=== PATIENT | female | born 1995 | race Two or more races ===

== ENCOUNTER 2022-01-03 10:28 | Emergency (ER) | payer MEDICAID, OTHER ==
[~2022-01-03] VITALS: Ht 152.4 cm; Wt 63.5 kg
[2022-01-03 11:07] VITALS: BP 147/83
[2022-01-03 11:33] LABS: Basophils # (auto) 0.1 10 ^3/uL (0-0.2); Basophils % (auto) 0.7 % (0.0-2.0); Eosinophils # (auto) 0.2 10 ^3/uL (0-0.8); Eosinophils % (auto) 1.3 % (0.0-7.0); Hematocrit 36.2 % (36.0-46.0); Hemoglobin 12.4 g/dL (12.2-16.2); Lymphocytes # (auto) 1.7 10 ^3/uL (0.4-5.4); Lymphocytes % (auto) 11.4 % (10.0-50.0); Mean Corpuscular Hemoglobin 31.2 pg (28.0-32.0); Mean Corpuscular Hgb Conc. 34.2 g/dL (32.0-36.0); Mean Corpuscular Volume 91.2 fL (80.0-100.0); Monocytes # (auto) 0.6 10 ^3/uL (0-1.3); Neutrophils # (auto) 12.3 10 ^3/uL (1.6-8.6); Neutrophils % (auto) 82.6 % (37.0-80.0); Red Blood Cells 3.97 10^6/uL (4.0-5.20); Red Cell Distribution Width 13.4 % (11.8-14.3); White Blood Cell 14.8 10^3/uL (4.4-10.8)
[2022-01-03 12:34] LABS: Urine Blood 3+ /uL (Negative); Urine WBC 490 /hpf (0 - 5); Urine WBC Clumps PRESENT /hpf (None Seen)
[2022-01-03 12:37] LABS: Urine Bacteria FEW /hpf (None Seen)
[2022-01-03 13:05] LABS: Urine Specific Gravity 1.025 (1.001-1.035)
== END 2022-01-03 12:30 | disposition home or self-care (01) ==
LOC: ER 10:28
DX: O20.0 Threatened abortion (principal); Z3A.13 13 weeks gestation of pregnancy
CPT/HCPCS: 36415; 76801; 81001; 84702; 85025

== ENCOUNTER 2025-08-16 07:48 | Observation (INO) | payer MEDICAID ==
--- NOTE | 2025-08-23 14:36 | DVH ---
BIOPHYSICAL PROFILE HISTORY: GDMA2 TECHNIQUE: Multiple transabdominal real-time grayscale sonographic images through the gravid uterus of the fetus with duplex Doppler color flow and M-mode spectral analysis FINDINGS: BIOPHYSICAL PROFILE: breathing score: 2 movement score: 2 tone score: 2 Quantitative KANDY score: 2 (KANDY: 15.7 Cm.) Total score: 8 The cervix not well visualized. Single live fetus in cephalic presentation. heart rate 147 beats per minute. Anterior placenta without previa or abruption IMPRESSION: Biophysical profile score: 8
--- NOTE | 2025-08-23 15:30 | DVHDS2 ---
Physician Discharge Progress N Final Diagnosis: testing for GDM, A1 Operations or Procedures: Operations or Procedures 29yo IUP@37.3wks VSS NST reactive (FHR baseline 145, moderate variability, +accels, -decels. I personally reviewed EFM tracing.) TOCO: 1 UC in 10 minutes FKC/PreE/labor precautions reviewed Other Interventions Other Interventions [address] [address] Ph: [phone] DIAGNOSTIC IMAGING Diagnostic Imaging Report : [id number] Signed PATIENT: DARIO BENITEZACCT: [id number] UNIT: [id number] : 1995 LOC: [facility] ROOM / BED: TRIAGE3 / A AGE / SEX: 29 / F ADM STATUS: ADM IN SERVICE 1352 ORDERING PHYSICIAN: DENYS MARTINEZ DO PROCEDURE(s): BPP - BIOPHYSICAL PROFILE REASON: GDMA2 ORDER NUMBER(s): [id number], ACCESSION NUMBER(s): [id number] BIOPHYSICAL PROFILE HISTORY: GDMA2 TECHNIQUE: Multiple transabdominal real-time grayscale sonographic images through the gravid uterus of the fetus with duplex Doppler color flow and M-mode spectral analysis FINDINGS: BIOPHYSICAL PROFILE: breathing score: 2 movement score: 2 tone score: 2 Quantitative KANDY score: 2 (KANDY: 15.7 Cm.) Total score: 8 The cervix not well visualized. Single live fetus in cephalic presentation. heart rate 147 beats per minute. Anterior placenta without previa or abruption IMPRESSION: Biophysical profile score: 8 ATED BY: SAIGE MIKE MD DICTATED DATE/TIME: 08/23/251433 SIGNED BY: SAIGE MIKE MD SIGNED DATE/TIME: 08/23/25 143 CC: Condition on Discharge: Stable Disposition: Home Discharge Instructions: Diet: Consistent carbohydrate Activity: No Restrictions, As Tolerated Medications: see med list Follow Up Care: Specialist: f/u in 1wk Discharge Statement: "Patient was advised to return to the ER or call 911 if any headaches, dizziness, shortness of breath, chest pain, abdominal pain, bleeding, fevers, or worsening of medical condition. Patient was counseled about treatment plan, medications, possible side effects, patientverbalized understanding. All questions were answered to the best of my ability. This discharge took greater then 30 minutes in planning, reviewing documentation, counseling the patient, and discussing with other team members." Visit Coding OBGYN Date of Service: Aug 23, 2025 Billing Provider: SAMI WHITE CNM BRINE MAKER Common Visit Codes: [id number] OBS CARE (HIGH) BRINE MAKER Procedure Codes: 49884-51- NON-STRESS TEST SAMI WHITE CNM Aug 23, 2025 15:30
== END 2025-08-23 15:36 | disposition home or self-care (01) ==
LOC: UNDOADMOB 08-23 13:50 → LDRP 08-23 13:50
PROVIDERS: ADMIT Obstetrics & Gynecology; ATTEND Obstetrics & Gynecology
DX: O24.419 Gestational diabetes mellitus in pregnancy, unspecified control (principal); Z3A.37 37 weeks gestation of pregnancy; Z79.899 Other long term (current) drug therapy; Z98.890 Other specified postprocedural states
CPT/HCPCS: 76819; 81002; 82948; 82962; 94760; G0378; 59025

== ENCOUNTER 2025-08-30 05:07 | Observation (INO) | payer MEDICAID ==
--- NOTE | 2025-08-30 13:54 | DVH ---
BIOPHYSICAL PROFILE HISTORY: GDMA1 TECHNIQUE: Multiple transabdominal real-time grayscale sonographic images through the gravid uterus of the fetus with duplex Doppler color flow and M-mode spectral analysis FINDINGS: BIOPHYSICAL PROFILE: breathing score: 2 movement score: 2 tone score: 2 Quantitative KANDY score: 2 (KANDY: 17.8 Cm.) Total score: 8 The cervix was not seen Single live fetus in cephalic presentation. heart rate 165 beats per minute. Grade II anterior placenta without previa or abruption IMPRESSION: Biophysical profile score: 8
--- NOTE | 2025-09-01 15:06 | DVHDS2 ---
Physician Discharge Progress N Final Diagnosis: gdm 38 wks Operations or Procedures: Operations or Procedures nst reactive reviwed,sono Condition on Discharge: Good Disposition: Home Discharge Instructions: Diet: Consistent carbohydrate Activity: No Restrictions, As Tolerated Follow Up/Referral: [facility] Thursday[facility] 06 at 12:00pm for NST/BPP Medications: na Follow Up Care: Specialist: 3d Discharge Statement: "Patient was advised to return to the ER or call 911 if any headaches, dizziness, shortness of breath, chest pain, abdominal pain, bleeding, fevers, or worsening of medical condition. Patient was counseled about treatment plan, medications, possible side effects, patientverbalized understanding. All questions were answered to the best of my ability. This discharge took greater then 30 minutes in planning, reviewing document ation, counseling the patient, and discussing with other team members." Visit Coding OBGYN Date of Service: Sep 01, 2025 Billing Provider: DENYS MARTINEZ DO [employer] Common Visit Codes: [id number] OBS CARE (HIGH) [employer] Procedure Codes: 48096-17- NON-STRESS TEST DENYS MARTINEZ DO Sep 01, 2025 15:06
== END 2025-08-30 14:34 | disposition home or self-care (01) ==
LOC: UNDOADMOB 13:00 → LDRP 13:00
PROVIDERS: ADMIT Obstetrics & Gynecology; ATTEND Obstetrics & Gynecology
DX: O62.9 Abnormality of forces of labor, unspecified (principal); Z3A.38 38 weeks gestation of pregnancy; Z79.899 Other long term (current) drug therapy; Z98.890 Other specified postprocedural states
CPT/HCPCS: 59025; 76819; 81002; 82948; 82962; 94760; G0378

== ENCOUNTER 2025-09-06 07:51 | Observation (INO) | payer MEDICAID ==
--- NOTE | 2025-09-06 14:13 | DVH ---
BIOPHYSICAL PROFILE HISTORY: GMDA1 TECHNIQUE: Multiple transabdominal real-time grayscale sonographic images through the gravid uterus of the fetus with duplex Doppler color flow and M-mode spectral analysis FINDINGS: BIOPHYSICAL PROFILE: breathing score: 2 movement score: 2 tone score: 2 Quantitative KANDY score: 2 (KANDY: 17.3 Cm.) Total score: 8 The cervix not well visualized. Single live fetus in cephalic presentation. heart rate 158 beats per minute. Anterior placenta without previa or abruption IMPRESSION: Biophysical profile score: 8
[2025-09-06] MEDS ORDERED: PREN-96 PO (14:28)
== END 2025-09-06 14:40 | disposition home or self-care (01) ==
LOC: LDRP 13:15
PROVIDERS: ADMIT Obstetrics & Gynecology; ATTEND Obstetrics & Gynecology
DX: O24.419 Gestational diabetes mellitus in pregnancy, unspecified control (principal); Z3A.39 39 weeks gestation of pregnancy; Z98.890 Other specified postprocedural states
CPT/HCPCS: 59025; 76819; 81002; 82948; 82962; 94760; G0378

== ENCOUNTER 2025-09-07 01:47 | Inpatient (IN) | payer MEDICAID ==
[~2025-09-07] VITALS: Ht 154.9 cm; Wt 76.2 kg
[~2025-09-07 01:47] MED LIST: PREN-96 PO
[2025-09-07] MEDS ORDERED: NALBUPHINE HCL 10 MG/1ml INJECTION IV PRN (02:30)
[2025-09-07] MEDS: LACTATED RINGER'S 1,000 ML IV SCH (02:30)
[2025-09-07 02:55] LABS: Hematocrit 36.8 % (36.0-46.0); Hemoglobin 12.6 g/dL (12.2-16.2); Mean Corpuscular Hemoglobin 31.7 pg (28.0-32.0); Mean Corpuscular Volume 93.0 fL (80.0-100.0); Nucleated Red Blood Cells % 0.0 %
[2025-09-07 03:00] LABS: Urine Protein, UAD Negative (Negative)
[2025-09-07] MEDS: LACT. RINGERS/OXYTOCIN 20UNITS 500 ML IV ONE ×3 (03:00→08:15)
[2025-09-07 03:10] LABS: INR 0.96 (0.9-1.15); Partial Thromboplastin Time 30.2 SEC (24.5-34.5); Prothrombin Time 10.2 sec (9.3-11.8)
[2025-09-07 03:11] LABS: Alanine Aminotransferase 10 U/L (7-40); Albumin 3.6 g/dL (3.2-4.8); Alkaline Phosphatase 122 U/L (46-116); Anion Gap 12 (5-15); BUN/Creatinine Ratio 15.5 (10.0-20.0); Bilirubin, Total 0.4 mg/dL (0.2-1.0); Blood Urea Nitrogen 9 mg/dL (9-23); Calcium 8.9 mg/dL (8.7-10.4); Carbon Dioxide 18 mmol/L (20-31); Chloride 108 mmol/L (98-107); Glucose 89 mg/dL (74-106); Potassium 3.7 mmol/L (3.5-5.1); Sodium 138 mmol/L (136-145); Total Protein 6.0 g/dL (5.7-8.2)
[2025-09-07 03:15] LABS: Cannabinoid Screen, Urine Neg (NEGATIVE)
--- NOTE | 2025-09-07 03:39 | DVHHP2 ---
OB CC & HPI Date Date of Admission: Sep 07, 2025 Patient Identification: : 2 Para: 1 EDC: Sep 10, 2025 EGA: 39w 4d Chief Complaints: Reason for admission: active labor Admission Nurse Assessment Rev: Yes Past Medical History Cardiac: No pertinent Hx Pulmonary: No pertinent Hx Central Nervous System: No pertinent Hx GI: No pertinent Hx Hemotology/Oncology: No pertinent Hx Hepatobiliary: No pertinent Hx Psychiatric: No pertinent Hx Musculoskeletal: No pertinent Hx Rheumotologic: No pertinent Hx Infectious Disease: No peritnent Hx ENT: No pertinent Hx Renal/: No pertinent Hx Endocrine: No pertinent Hx Dermatology: No pertinent Hx Past Surgical History: No pertinent Hx OB History OB History Care: Good Care Ultrasounds: Normal mid trimester US Obstetrical Complications: Gestational Diabetes Medical Complications: None Allergies: Coded Allergies: NO KNOWN ALLERGIES (Unverified , 01/03/22) Home Meds Reported Medications Vit W/ Ferrous Fumara ( One Daily) Daily Tab, 1 TAB PO DAILY, #90 TAB 3 Refills 09/06/25 Current Medications Current Medications Medications (Trade) Dose Ordered Sig/Guerline Route PRN Reason Start Time Stop Time Status Last Admin Lactated Ringer's 1,000 ml @ 125 mls/hr Q8H IV 09/07/25 02:30 Nalbuphine HCl (Nubain) 10 mg Q4HP PRN IV MODERATE PAIN (4-6 PAIN SCALE) 09/07/25 02:30 Witch Radha (Tucks) 1 pad PRN PRN TOP PERINEAL AREA DISCOMFORT 09/07/25 02:30 Sodium Lauryl Sulfate (Phisoderm) 240 ml PRN PRN TOP PERINEAL AREA DISCOMFORT 09/07/25 02:30 Benzocaine (Dermoplast) 1 applic PRN PRN TOP PERINEAL AREA DISCOMFORT 09/07/25 02:30 Lidocaine HCl (Xylocaine) 40 ml ONCE PRN IJ PERINEAL AREA DISCOMFORT 09/07/25 02:30 Diagnostic Test (Pha) (Accu-Chek Comfort Curve T) 1 strip Q4HR 09/07/25 06:30 Family & Social History Family/Social History Past Family/Social History: Diabetes @: MGF & PGF, HTN - father Blood Type: O+ Rubella: immune RPR/VDRL: Negative GBS Status: Negative HBsAG: Negative Review of Systems Constitutional: No symptom reported Ears, Nose, & Throat: No symptom reported Eyes: No symptom reported Pulmonary/Respiratory: No symptom reported Cardiovascular: No symptom reported Gastrointestinal: No symptom reported Genitourinary: No symptom reported Musculoskeletal: No symptom reported Skin: No symptom reported Psychiatric: No symptom reported Endocrine: No symptom reported Hemotologic/Lymphatic: No symptom reported OB Admission Exam Physical Exam HEENT: TMs Normal, Fontanelles Normal, Nasal Mucosa Normal, Eyes non-injected, Oropharynx Normal, PERRLA, Moist Membranes, EOMI Heart: Rhythm Normal Lungs: Clear Abdomen: Non tender Extremities: Normal Reflexes: Normal Cervical Dilatation: 5cm Effacement: 75% Station: -2 Membranes: Intact Heart Rate: 150's Accelerations: Accelerations Present Decelerations: No Decelerations Intermediate Variability: Minimal (3-5) Contractions on Admission: None Date/Time Contractions Began: 09/06/25 Frequency of Contractions: 5min Duration: 30secs Intensity: Mild OB Plan Plan Admitting Diagnosis: IUP @ 39w 4d Onset of Labor Plan: Expectant Management Visit Coding OBGYN Date of Service: Sep 07, 2025 Billing Provider: PERRI GAR CNM TRANSCRIPTION MANAGER Common Visit Codes: [id number] INP/OBS CARE (HIGH) TRANSCRIPTION MANAGER Procedure Codes: 16425-35- NON-STRESS TEST PERRI GAR CNM Sep 07, 2025 03:39
[2025-09-07] MEDS: WITCH HAZEL-GLYCERIN PAD TOP PRN (03:48)
[2025-09-07] MEDS: DERMOPLAST 60ML BOTTLE TOP PRN (03:48)
[2025-09-07] MEDS: PHISODERM TOP SOLN 240ML BTL TOP PRN (03:48)
[2025-09-07 03:50] LABS: Amphetamine Screen, Urine Neg (NEGATIVE); Barbiturate Scree,Urine Neg (NEGATIVE); Benzodiazephine Screen, Urine Neg (NEGATIVE); Opiate Scree,Urine Neg (NEGATIVE); Phencyclidine Screen, Urine Neg (NEGATIVE)
[2025-09-07 03:51] LABS: Cocaine Screen, Urine Neg (NEGATIVE)
[2025-09-07] MEDS: D5W/LACTATED RINGERS 1,000 ML IV SCH (04:28)
[2025-09-07] MEDS ORDERED: ceFAZolin 1GM/50ML 50 ML IV ONE (06:15)
--- NOTE | 2025-09-07 06:27 | DVHPN2 ---
CNM Labor Progress Note Date and Time Seen Date Seen: Sep 07, 2025 Time Seen: 05:50 Subjective Patient reports: No new complaints Monitoring Method Monitoring Method: External Heart Rate Heart Rate Baseline: 165 Heart Rate Variability: Moderate Presence of FHR Accelerations: Yes Presence of FHR Decelerations: No Comment on Trends or Patterns: Rising FHR baseline Are all 5 Components of the FH: Yes Contractions Contractions Frequency: Other (2-4) Duration of Contraction: 90 Contractions Intensity: Moderate Contractions Resting Tone: Relaxed Membranes Membranes: Intact Vaginal Exam Vag Exam Deferred: No Vaginal Exam Dilation: 6 Vaginal Exam Effacement: 80 Vaginal Exam Station: -1 Vaginal Exam Show: Small Medications Medications - Pitocin: No Medication - Epidural: No Lab Results Lab Results Current Medications Medications (Trade) Dose Ordered Sig/Guerline Start Time Stop Time Status Last Admin Dose Admin Lactated Ringer's 1,000 ml @ 125 mls/hr Q8H 09/07/25 02:30 09/07/25 02:30 125 MLS/HR Nalbuphine HCl (Nubain) 10 mg Q4HP PRN 09/07/25 02:30 Witch Radha (Tucks) 1 pad PRN PRN 09/07/25 02:30 09/07/25 03:48 1 PAD Sodium Lauryl Sulfate (Phisoderm) 240 ml PRN PRN 09/07/25 02:30 09/07/25 03:48 240 ML Benzocaine (Dermoplast) 1 applic PRN PRN 09/07/25 02:30 09/07/25 03:48 1 APPLIC Lidocaine HCl (Xylocaine) 40 ml ONCE PRN 09/07/25 02:30 09/07/25 07:34 40 ML Diagnostic Test (Pha) (Accu-Chek Comfort Curve T) 1 strip Q4HR 09/07/25 06:30 Oxytocin 500 ml @ 999 mls/hr Q31M ONCE 09/07/25 02:30 09/07/25 03:00 DC 09/07/25 07:16 999 MLS/HR Oxytocin 500 ml @ 125 mls/hr Q4H ONCE 09/07/25 03:00 09/07/25 06:59 DC Dextrose/Lactated Ringer's 1,000 ml @ 125 mls/hr Q8H 09/07/25 04:30 09/07/25 04:28 125 MLS/HR Cefazolin Sodium 50 ml @ 100 mls/hr ONCE ONCE 09/07/25 06:15 09/07/25 06:07 DC Cefazolin Sodium/ Dextrose 50 ml @ 50 mls/hr ONCE ONCE 09/07/25 06:15 09/07/25 07:14 DC 09/07/25 06:30 50 MLS/HR Ibuprofen (Motrin Tablet) 600 mg Q6HP PRN 09/07/25 07:45 Acetaminophen (Tylenol Tablet) 650 mg Q4HP PRN 09/07/25 07:45 Oxytocin 500 ml @ 125 mls/hr Q4H ONCE 09/07/25 08:15 09/07/25 12:14 Laboratory Tests Test 09/07/25 02:39 09/07/25 01:55 Range/Units White Blood Count 13.1 H 4.4-10.8 10^3/uL Red Blood Count 3.96 L 4.0-5.20 10^6/uL Hemoglobin 12.6 12.2-16.2 g/dL Hematocrit 36.8 36.0-46.0 % Mean Corpuscular Volume 93.0 80.0-100.0 fL Mean Corpuscular Hemoglobin 31.7 28.0-32.0 pg Mean Corpuscular Hemoglobin Concent 34.1 32.0-36.0 g/dL Red Cell Distribution Width 12.8 11.8-14.3 % Platelet Count 182 140-450 10^3/uL Mean Platelet Volume 9.4 6.9-10.8 fL Neutrophils (%) (Auto) 75.3 37.0-80.0 % Lymphocytes (%) (Auto) 16.4 10.0-50.0 % Monocytes (%) (Auto) 5.7 0.0-12.0 % Eosinophils (%) (Auto) 2.1 0.0-7.0 % Basophils (%) (Auto) 0.5 0.0-2.0 % Neutrophils # (Auto) 9.9 H 1.6-8.6 10 ^3/uL Lymphocytes # (Auto) 2.2 0.4-5.4 10 ^3/uL Monocytes # (Auto) 0.8 0-1.3 10 ^3/uL Eosinophils # (Auto) 0.3 0-0.8 10 ^3/uL Basophils # (Auto) 0.1 0-0.2 10 ^3/uL Nucleated Red Blood Cells 0.0 % Prothrombin Time 10.2 9.3-11.8 sec Prothrombin Time INR 0.96 0.9-1.15 Activated Partial Thromboplast Time 30.2 24.5-34.5 SEC Sodium Level 138 136-145 mmol/L Potassium Level 3.7 3.5-5.1 mmol/L Chloride Level 108 H 98-107 mmol/L Carbon Dioxide Level 18 L 20-31 mmol/L Anion Gap 12 5-15 Blood Urea Nitrogen 9 9-23 mg/dL Creatinine 0.58 0.550-1.02 mg/dL Glomerular Filtration Rate Calc 124 >90 mL/min BUN/Creatinine Ratio 15.5 10.0-20.0 Serum Glucose 89 74-106 mg/dL Calcium Level 8.9 8.7-10.4 mg/dL Total Bilirubin 0.4 0.2-1.0 mg/dL Aspartate Amino Transferase (AST) 18 13-40 U/L Alanine Aminotransferase (ALT) 10 7-40 U/L Alkaline Phosphatase 122 H 46-116 U/L Total Protein 6.0 5.7-8.2 g/dL Albumin 3.6 3.2-4.8 g/dL Treponema pallidum Antibody Non-reactive Negative Hepatitis C Antibody Negative Negative Urine Color Light-yellow Yellow Urine Clarity Clear Clear Urine pH 6.0 5.0-9.0 Urine Specific [place] 1.019 1.001-1.035 Urine Protein Negative Negative Urine Ketones 1+ H Negative Urine Blood Negative Negative /uL Urine Nitrite Negative Negative Urine Bilirubin Negative Negative Urine Urobilinogen Normal Negative mg/dL Urine Leukocyte Esterase Negative Negative /uL Urine RBC None seen 0 - 4 /hpf Urine Microscopic WBC 2 0-5 /HPF Urine Squamous Epithelial Cells Few <5 /hpf Urine Bacteria None seen None Seen /hpf Urine Glucose Normal Normal mg/dL Urine Opiates Screen Neg NEGATIVE Urine Fentanyl Screen Neg NEGATIVE Urine Barbiturates Screen Neg NEGATIVE Urine Phencyclidine Screen Neg NEGATIVE Urine Amphetamines Screen Neg NEGATIVE Urine Benzodiazepines Screen Neg NEGATIVE Urine Cocaine Screen Neg NEGATIVE Urine Cannabinoids Screen Neg NEGATIVE Assessment Assessment <> IUP at 39w 4d <> GDMA1 <> Labor <> Category II FHR tracing Plan Plan > AROM - done; clear fluid > Continue expectant management > Antibiotics prophylaxis > Intrauterine resuscitation PRN > Labor analgesia PRN > Supportive care > Anticipate Plan discussed with: Patient, Spouse, Other (Patient's sister) Visit Coding OBGYN Date of Service: Sep 07, 2025 Billing Provider: PERRI GAR CNM MANAGER OPERATIONS Common Visit Codes: [id number] INP/OBS CARE(HIGH) MANAGER OPERATIONS Procedure Codes: 17568-17- NON-STRESS TEST PERRI GAR CNM Sep 07, 2025 06:27
[2025-09-07] MEDS: ceFAZolin 2 GM/D5W50ml 50 ML IV ONE (06:30)
[2025-09-07] MEDS: ACCU-CHEK COMFORT CURVE STRIP VI SCH (06:30)
[2025-09-07] MEDS: LIDOCAINE 2%HCL (LOCAL ANESTH.) INJ 20ML MDV IJ PRN (07:34)
[2025-09-07] MEDS ORDERED: IBUPROFEN 600 MG TAB PO PRN (07:45)
[2025-09-07 15:15] VITALS: BP 121/75; PULSE 74; RESP 16; TEMP 97.9; O2SAT 98
[2025-09-07 18:33] VITALS: BP 136/84; TEMP 98
[2025-09-07] MEDS: ACETAMINOPHEN 325 MG TAB PO PRN (18:57)
[2025-09-07 23:15] VITALS: BP 138/83; PULSE 92; RESP 17; TEMP 98.2; O2SAT 97
[2025-09-08] MEDS ORDERED: DOCU-94 PO (01:18)
[2025-09-08] MEDS ORDERED: IBU600T PO (01:18)
[2025-09-08 07:00] VITALS: BP 138/82; PULSE 91; RESP 16; TEMP 97.8; O2SAT 96
--- NOTE | 2025-09-08 11:04 | LDN2 ---
Labor and Delivery Note Date 09/07/25 Age 29 2 Para 1; now 2 AB 0 EDC 09/10/25 EGA 39w 4d Diagnosis <> IUP at 39w 4d <> GDMA1 <> Labor Vaginal Delivery: VTX Vacuum Assisted: No Placenta: Spontaneous Sex: Male Weight Yet to be weighed - bonding with parents Apgars 8 @ one minute & 9 @ five minutes of life Nuchal Cord Transected: Yes Amniotic Fluid: Clear Anesthesia no Episiotomy: No Extension: Yes Repaired with 2-0 Vicryl EBL 100mL Labs Blood Bank 09/07/25 02:39: Blood Type O POSITIVE Complications None Conditions Mother and baby in stable condition Script Manager Somu Comments/Significant Med Dariel At 0700, 29yo, now delivered a viable Male infant by w/ score 8 at one & 9 @ five minutes of life. LIN position placed skin to skin on pts chest. Cord clamped and cut after pulsation ceased. Cord blood sent. Intact 3-vessel cord placenta delivered spontaneously, Izabel. Pitocin IV bolus started. Placenta sent to pathology. . Cervix/vagina inspected. Cervix intact. Periurethral laceration noted and was repaired with 2-0 vicryl suture. Fundus at U, firm, midline, and light lochia. QBL 100ml. VSS. Count correct x2. Patient to care and baby to couplet care, both stable. Visit Coding OBGYN Date of Service: Sep 07, 2025 Billing Provider: PERRI GAR CNM CAPITAL EQUIPMENT SPECIALIST Common Visit Codes: [id number] INP/OBS CARE(HIGH) CAPITAL EQUIPMENT SPECIALIST Procedure Codes: 75026-20- NON-STRESS TEST, 41595-GBP DELIVERY ONLY PERRI GAR CNM Sep 07, 2025 09:22
--- NOTE | 2025-09-08 11:33 | DVHDS2 ---
Obstetrics Discharge Summary Obstetrics Discharge Summary Date of Admission: Sep 07, 2025 Date of Discharge: Sep 08, 2025 Reason For Admission: Onset of Labor Intrapartum Procedures: Spontaneous vaginal deliv (Admitted at 39w4d for labor. Expectant management at first and then augmentation with AROM. Uncomplicated spontaneous vaginal delivery. Given ancef 2g x 1 time for "being warm to touch". No PP complications) Procedures: Antibiotics Operative Complicat: Laceration (periurethral) Discharge Diagnosis: Term -Delivered Discharge Information: Activity (Unrestricted. Advance as tolerated. Balance activities with rest periods. No heavy lifting, pushing or straining. Pelvic rest x 6 weeks), Diet (Routine regular diet rich in fiber, protein, iron and vitamin C with adequate fluid intake.), Medications (Ibuprofen 600mg every 6 hours as needed for pain. Colace 100mg twice a day as needed to keep bowel movements soft and prevent constipation. Continue Vitamin and iron), Instructions (Routine), Discharge to (Home), Accompanied by (partner), Discarge date (09/08/2025) Discharge Care Plan Instructions - self care instructions given - emergency signs and symptoms including but not limited to pre-eclampsia precautions and signs of infection, PPH & of PPD reviewed with patient. -Follow up with OB Provider in 2 weeks and again at 6 weeks Visit Coding OBGYN Date of Service: Sep 08, 2025 Billing Provider: NADIR DELEON CNM ELECTRONIC PLOTTING SYSTEM OPERATOR Common Visit Codes: [id number]/[id number] DISCH DAY <30MIN NADIR DELEON CNM Sep 08, 2025 01:18
--- NOTE | 2025-09-08 11:33 | DVHPN2 ---
Progress Note Date Seen: Sep 08, 2025 Subjective Elba is standing and about to go shower. Partner asleep on couch SUBJECTIVE -Lochia minimal -Tolerating regular diet well. -Pain relieved with oral medication PRN -Ambulating and voiding well w/o feeling lightheaded or dizzy. -Passing flatus but no BM yet -Breast feeding and open to bottle if needed. -Desires and requests to be discharged home today (09/08) as long as baby blood sugar is stable vital signs Vital Sign Date Time Temp Pulse Resp B/P (MAP) Pulse Ox O2 Delivery O2 Flow Rate FiO2 09/07/25 23:15 98.2 92 17 138/83 (101) 97 98.2 09/07/25 18:33 Room Air medications Current Medications Medications Dose Ordered Sig/Guerline Route Start Time Stop Time Status Last Admin Dose Admin Lactated Ringer's 1,000 ml @ 125 mls/hr Q8H IV 09/07/25 02:30 09/07/25 02:30 125 MLS/HR Nalbuphine HCl 10 mg Q4HP PRN IV 09/07/25 02:30 Witch Radha 1 pad PRN PRN TOP 09/07/25 02:30 09/07/25 03:48 1 PAD Sodium Lauryl Sulfate 240 ml PRN PRN TOP 09/07/25 02:30 09/07/25 03:48 240 ML Benzocaine 1 applic PRN PRN TOP 09/07/25 02:30 09/07/25 03:48 1 APPLIC Lidocaine HCl 40 ml ONCE PRN IJ 09/07/25 02:30 09/07/25 07:34 40 ML Diagnostic Test (Pha) 1 strip Q4HR 09/07/25 06:30 Dextrose/Lactated Ringer's 1,000 ml @ 125 mls/hr Q8H IV 09/07/25 04:30 09/07/25 04:28 125 MLS/HR Ibuprofen 600 mg Q6HP PRN PO 09/07/25 07:45 Acetaminophen 650 mg Q4HP PRN PO 09/07/25 07:45 09/07/25 18:57 650 MG laboratory and microbiology Laboratory Tests 09/07/25 02:39 Test 09/07/25 02:39 Range/Units Serum Glucose 89 74-106 mg/dL Objective OBJECTIVE -A&O x4. No apparent distress. Affect appropriate -Afebrile, VSS -Chest: heart and lung sounds normal. -Breasts: Nipples intact w/o cracks or soreness -Abdomen: normal BS, soft, non-tender, no rebound or guarding, fundus firm @ U- 1, lochia minimal -Perineum: deferred -Extremities: no edema or tenderness Problems(with codes): (1) (normal spontaneous vaginal delivery) Assessment/Plan ASSESSMENT -29 yo now ppd #1 s/p doing well. -Blood Type: O+ -Breast feeding, with bottle supplementation -Rubella Immune PLAN -Continue pain management with oral medications as previously ordered -Increase fluid intake and fiber in diet to promote regular bowel movements, Laxative PRN -Encouraged patient to continue taking vitamin and iron -Educated patient on self care and warning signs of PPH, PPD, and pre-eclampsia. Answered all pt questions and concerns -Continue routine care and anticipate discharge today with baby Plan discussed with: Patient, Other (Patient's sister) Visit Coding OBGYN Date of Service: Sep 08, 2025 Billing Provider: NADIR DELEON CNM STAPLER HAND Common Visit Codes: [id number] INP/OBS CARE(MOD) NADIR DELEON CNM Sep 08, 2025 01:15
== END 2025-09-08 10:30 | disposition home or self-care (01) | DRG 560 ==
LOC: LDRP 01:47 → OBSVTOIN 02:14 → LDRP 02:33
PROVIDERS: ADMIT Obstetrics & Gynecology; ATTEND Obstetrics & Gynecology
PROC: 10E0XZZ Delivery of Products of Conception, External Approach (ICD-10-PCS; principal; 2025-09-07)
PROC: 0UQMXZZ Repair Vulva, External Approach (ICD-10-PCS; 2025-09-07)
DX: O24.420 Gestational diabetes mellitus in childbirth, diet controlled (principal); Z37.0 Single live birth; O69.81X0 Labor and delivery complicated by cord around neck, without compression, not applicable or unspecified; Z3A.39 39 weeks gestation of pregnancy; O71.82 Other specified trauma to perineum and vulva; O76 Abnormality in fetal heart rate and rhythm complicating labor and delivery
CPT/HCPCS: 36415; 59025; 59409; 80053; 80307; 81001; 81002; 85025; 85610; 85730; 86780; 86803; 86850; 86900; 86901; 94760; 96360; 96361; G0378; J2590